=== PATIENT | female | born 1990 | race Hispanic/Latino ===

== ENCOUNTER 2017-01-30 03:25 | Emergency (ER) | payer BC ==
[2017-01-30 03:36] VITALS: BP 101/70
[2017-01-30] MEDS ORDERED: NACL 0.9% 1000 ML 1,000 ML IV ONE (03:36)
[2017-01-30 04:52] LABS: Basophils % (Auto) 1.1 % (0.0-1.8); Eosinophils % (Auto) 1.9 % (0.0-4.3); Hematocrit 38.1 % (30.3-42.9); Hemoglobin 12.9 gm/dl (10.1-14.3); Mean Corpuscular HGB Conc 34 % (30-34); Mean Corpuscular Hemoglobin 31 pg (28-32); Mean Corpuscular Volume 93 fl (79-97); Platelet Count 286 K/mm3 (140-440); Red Blood Count 4.11 M/mm3 (3.65-5.03); Red Cell Distribution Width 13.1 % (13.2-15.2); White Blood Count 7.6 K/mm3 (4.5-11.0)
[2017-01-30 04:59] LABS: INR 0.92 (0.87-1.13)
[2017-01-30 05:00] LABS: Partial Thromboplastin Time 26.7 Sec. (24.2-36.6)
[2017-01-30 05:08] LABS: Alanine Aminotransferase 23 units/L (7-56); Albumin 4.5 g/dL (3.9-5); Albumin/Globulin Ratio 1.4 %; Alkaline Phosphatase 74 units/L (35-129); Anion Gap 14 mmol/L; BUN/Creatinine Ratio 12.85; Blood Urea Nitrogen 9 mg/dL (7-17); Calcium 8.9 mg/dL (8.4-10.2); Carbon Dioxide 28 mmol/L (22-30); Chloride 104.1 mmol/L (98-107); Glucose 99 mg/dL (65-100); Lipase 22 units/L (13-60); Potassium 3.7 mmol/L (3.6-5.0); Sodium 142 mmol/L (137-145); Total Protein 7.7 g/dL (6.3-8.2)
--- NOTE | 2017-01-31 16:22 | ED Elopement Review ---
ED Pt Elopement review - Results review Lab results: Laboratory Tests 01/30/17 01/30/17 01/30/17 03:43 03:43 03:43 WBC 7.6 RBC 4.11 Hgb 12.9 Hct 38.1 MCV 93 MCH 31 MCHC 34 RDW 13.1 L Plt Count 286 Lymph % (Auto) 27.3 [place] % (Auto) 5.2 Eos % (Auto) 1.9 Baso % (Auto) 1.1 Lymph # 2.1 [place] # 0.4 Eos # 0.1 Baso # 0.1 Seg Neutrophils % 64.5 Seg Neutrophils # 4.9 PT 12.8 INR 0.92 APTT 26.7 Sodium 142 Potassium 3.7 Chloride 104.1 Carbon Dioxide 28 Anion Gap 14 BUN 9 Creatinine 0.7 Estimated GFR > 60 BUN/Creatinine Ratio 12.85 Glucose 99 Calcium 8.9 Total Bilirubin 0.20 AST 26 ALT 23 Alkaline Phosphatase 74 Total Protein 7.7 Albumin 4.5 Albumin/Globulin Ratio 1.4 Lipase 22 HCG, Qual Blood Type Antibody Screen HONG Antibody Screen 01/30/17 01/30/17 03:43 Unknown WBC RBC Hgb Hct MCV MCH MCHC RDW Plt Count Lymph % (Auto) [place] % (Auto) Eos % (Auto) Baso % (Auto) Lymph # [place] # Eos # Baso # Seg Neutrophils % Seg Neutrophils # PT INR APTT Sodium Potassium Chloride Carbon Dioxide Anion Gap BUN Creatinine Estimated GFR BUN/Creatinine Ratio Glucose Calcium Total Bilirubin AST ALT Alkaline Phosphatase Total Protein Albumin Albumin/Globulin Ratio Lipase HCG, Qual Negative Blood Type A POSITIVE Antibody Screen TNR HONG Antibody Screen Negative - Call Back decision Pt Call Back Decision: Pt to F/U with PMD
== END 2017-01-30 09:45 | disposition left against medical advice (07) ==
LOC: ED 03:25
DX: R10.30 Lower abdominal pain, unspecified (principal); K92.0 Hematemesis; Z53.21 Procedure and treatment not carried out due to patient leaving prior to being seen by health care provider
CPT/HCPCS: 36415; 80053; 83690; 84703; 85025; 85610; 85730; 86850; 86900; 86901; 93005; 93010